=== PATIENT | female | born 1965 | race African-American/Black ===

== ENCOUNTER → 2016-12-10 | Outpatient (CLI) | payer BC ==
[~2016-12-10] MED LIST: BENADRYL25 M2 PO; BENTYL 20MG20 MG/TAB PO; MIRALAX 17GM PK1 PKT PO; NO HOME MEDICATIONS; OMEGA-3 1000 MG1 CAP PO; PROBIOTIC-MAJOR PO; VITAMIN B-1000 MCG/T PO; VITAMIN C500 MG PO; VITAMIND3 5000; ZESTRIL 5MG5 MG PO
== END ==
LOC: MC.RAD 12-05 13:20
DX: Z12.31 Encounter for screening mammogram for malignant neoplasm of breast (principal)

== ENCOUNTER → 2016-12-12 | Outpatient (CLI) | payer BC | LOC: MC.RAD 09:58 | DX: N63 Unspecified lump in breast (principal) ==

== ENCOUNTER 2016-12-26 08:55 | Day surgery (SDC) | payer BC ==
[~2016-12-26] VITALS: Ht 160 cm; Wt 74.8 kg
[~2016-12-26 08:55] MED LIST changes: -BENADRYL25 M2 PO; -OMEGA-3 1000 MG1 CAP PO; -PROBIOTIC-MAJOR PO; -VITAMIN B-1000 MCG/T PO; -VITAMIN C500 MG PO; -VITAMIND3 5000; -ZESTRIL 5MG5 MG PO
[2016-12-26] MEDS ORDERED: ZESTRIL 5MG5 MG PO (09:23)
[2016-12-26] MEDS ORDERED: VITAMIN C500 MG PO (09:24)
[2016-12-26] MEDS ORDERED: VITAMIN B-1000 MCG/T PO (09:24)
[2016-12-26] MEDS ORDERED: OMEGA-3 1000 MG1 CAP PO (09:25)
[2016-12-26] MEDS ORDERED: VITAMIND3 5000 (09:25)
[2016-12-26] MEDS ORDERED: BENADRYL25 M2 PO (09:26)
[2016-12-26] MEDS ORDERED: PROBIOTIC-MAJOR PO (09:26)
[2016-12-26 09:34] VITALS: BP 135/84; PULSE 67; TEMP 97
[2016-12-26 11:05] VITALS: BP 124/66; PULSE 66; TEMP 97.8
[2016-12-26 11:20] VITALS: BP 107/67; PULSE 67
== END 2016-12-26 11:38 | disposition home or self-care (01) ==
LOC: SDCO 08:55
DX: K63.89 Other specified diseases of intestine (principal); R19.7 Diarrhea, unspecified; R19.4 Change in bowel habit; K58.9 Irritable bowel syndrome, unspecified
CPT/HCPCS: OP; J2250; J2405; J3010; J7030

== ENCOUNTER → 2017-02-20 | Outpatient (CLI) | payer BC ==
[~2017-02-20] MED LIST changes: +BENADRYL25 M2 PO; +OMEGA-3 1000 MG1 CAP PO; +PROBIOTIC-MAJOR PO; +VITAMIN B-1000 MCG/T PO; +VITAMIN C500 MG PO; +VITAMIND3 5000; +ZESTRIL 5MG5 MG PO
== END ==
LOC: COL.LAB 15:57
DX: Z01.89 Encounter for other specified special examinations (principal)

== ENCOUNTER → 2017-06-22 | Outpatient (CLI) | payer BC | LOC: MC.RAD 08:30 | DX: N63.11 Unspecified lump in the right breast, upper outer quadrant (principal) ==

== ENCOUNTER 2017-10-05 21:21 | Emergency (ER) | payer BC ==
[~2017-10-05] VITALS: Ht 160 cm; Wt 77.3 kg
[2017-10-05 21:26] VITALS: TEMP 96.9
[2017-10-05 23:30] VITALS: BP 130/96; PULSE 50
== END 2017-10-05 23:30 | disposition home or self-care (01) ==
LOC: COL.ER 21:21
DX: L72.0 Epidermal cyst (principal)

== ENCOUNTER → 2018-03-23 | Outpatient (CLI) | payer BC | LOC: MC.RAD 08:06 | DX: Z12.31 Encounter for screening mammogram for malignant neoplasm of breast (principal) ==